=== PATIENT | male | born 1960 | race Caucasian/White ===

== ENCOUNTER 2023-04-03 08:45 | Outpatient (RCR) | payer MEDICARE, SELFPAY | END 2023-06-28 15:39 | disposition home or self-care (01) | PROVIDERS: PCP Family Medicine; Visit Provider Specialist | DX: Z98.1 Arthrodesis status (principal); Z51.89 Encounter for other specified aftercare | CPT/HCPCS: 97110; 97140; 97161 ==

== ENCOUNTER 2024-01-08 08:15 | Outpatient (RCR) | payer MEDICARE, SELFPAY | END 2024-05-07 07:18 | disposition home or self-care (01) | PROVIDERS: PCP Family Medicine; Visit Provider Specialist | DX: M48.062 Spinal stenosis, lumbar region with neurogenic claudication (principal); M51.36 Other intervertebral disc degeneration, lumbar region; Z48.89 Encounter for other specified surgical aftercare; M54.50 Low back pain, unspecified; R53.1 Weakness; Z51.89 Encounter for other specified aftercare | CPT/HCPCS: 97110; 97140; 97161 ==